=== PATIENT | male | born 1965 | race Two or more races ===

== ENCOUNTER 2021-05-12 19:17 | Inpatient (IN) | payer OTHER ==
[2021-05-12 20:23] VITALS: BMI 23.3
[2021-05-12] MEDS ORDERED: MAGNESIUM CITRATE 300 ML BOTTLE PO PRN (20:56)
[2021-05-12] MEDS ORDERED: MAGNESIUM HYDROX 2400MG/30ML ORAL SUSPENSION 30 ML CUP PO PRN (20:56)
[2021-05-12] MEDS ORDERED: ONDANSETRON *ODT* 4 MG TABLET SL PRN (20:56)
[2021-05-12] MEDS ORDERED: METHOCARBAMOL 500 MG TABLET PO PRN (20:56)
[2021-05-12] MEDS ORDERED: MAG HYDROX/AL HYDROX/SIMETH 30 ML UNIT-DOSE CUP PO PRN (20:56)
[2021-05-12] MEDS ORDERED: IBUPROFEN 400 MG TABLET (FP) PO PRN (20:56)
[2021-05-12] MEDS ORDERED: MENTHOL/PHENOL 1 EACH UD MM PRN (20:56)
[2021-05-12] MEDS ORDERED: NICOTINE POLACRILEX 2 MG GUM BUC PRN (20:56)
[2021-05-12] MEDS ORDERED: ACETAMINOPHEN 325 MG TABLET (FP) PO PRN ×2 (20:56)
[2021-05-12] MEDS ORDERED: BISMUTH SUBSALICYLATE 524 MG/30 ML PO PRN (20:56)
[2021-05-12] MEDS ORDERED: LORazepam 1 MG TABLET PO PRN (20:59)
[2021-05-12] MEDS ORDERED: LORazepam 2 MG TABLET ONE (22:57)
[2021-05-12] MEDS: THIAMINE HCL 100 MG TABLET (FP) PO SCH (23:00)
[2021-05-12] MEDS: LORazepam 2 MG TABLET PO SCH (23:00)
[2021-05-12] MEDS: MELATONIN 5 MG TABLETS PO SCH (23:00)
[2021-05-13] MEDS ORDERED: LORazepam 2 MG TABLET ONE (05:50)
[2021-05-13] MEDS: LORazepam 2 MG TABLET PO SCH ×2 (06:10→10:09)
[2021-05-13] MEDS ORDERED: PRENATAL VITAMINS W/ FOLIC ACID TABLET (FP) PO SCH (10:00)
[2021-05-13] MEDS ORDERED: NICOTINE 14 MG/24 HOURS TOPICAL PATCH TD SCH (10:00)
[2021-05-13 10:51] LABS: HEMATOCRIT 44.9 % (35.4-49); HEMOGLOBIN 15.1 GM/dL (11.7-16.9); MCH 33.3 pg (25.7-33.7); MCHC 33.6 g/dl (32.0-35.9); MEAN PLT VOLUME 7.6 fl (7.5-11.1); PLATELET COUNT 168 10^3/uL (134-434); RBC 4.53 M/mm3 (4.00-5.60); RDW 12.5 % (11.9-15.9); WHITE BLOOD COUNT 5.6 K/mm3 (4.0-10.0)
[2021-05-13 11:00] LABS: CALCIUM 9.1 mg/dL (8.5-10.1)
[2021-05-13 11:01] LABS: ALBUMIN 3.6 g/dl (3.4-5.0)
[2021-05-13 11:03] LABS: CREATININE 0.8 mg/dL (0.55-1.3)
[2021-05-13 11:05] LABS: BILIRUBIN,TOTAL 0.4 mg/dL (0.2-1); TOT PROT 7.5 g/dl (6.4-8.2)
[2021-05-13] MEDS ORDERED: amLODIPine BESYLATE 10 MG TABLET (FP) PO SCH (14:30)
[2021-05-13] MEDS: LORazepam 0.5 MG TABLET PO SCH ×2 (17:51→22:24)
[2021-05-13] MEDS: THIAMINE HCL 100 MG TABLET (FP) PO SCH (22:24)
[2021-05-13] MEDS: MELATONIN 5 MG TABLETS PO SCH (22:25)
[2021-05-14] MEDS ORDERED: LORazepam 0.5 MG TABLET PO SCH (05:00)
[2021-05-14] MEDS ORDERED: LORazepam 1 MG TABLET PO SCH (05:00)
[2021-05-14 07:26] VITALS: TEMP 98.1
[2021-05-14 09:17] VITALS: PULSE 117
[2021-05-14 09:27] VITALS: BP 161/100
[2021-05-15] MEDS ORDERED: LORazepam 0.5 MG TABLET PO PRN
[2021-05-15] MEDS ORDERED: LORazepam 0.5 MG TABLET PO SCH ×2 (05:00)
[2021-05-16] MEDS ORDERED: LORazepam 0.5 MG TABLET PO ONE (05:00)
== END 2021-05-14 10:24 | disposition left against medical advice (07) | DRG 770 ==
LOC: YASAS 19:17 → Y6N 05-13 09:15
PROVIDERS: ADMIT Allergy & Immunology; ATTEND Allergy & Immunology
PROC: HZ2ZZZZ Detoxification Services for Substance Abuse Treatment (ICD-10-PCS; principal; 2021-05-13)
DX: F10.230 Alcohol dependence with withdrawal, uncomplicated (principal); F14.20 Cocaine dependence, uncomplicated; F12.20 Cannabis dependence, uncomplicated; F17.210 Nicotine dependence, cigarettes, uncomplicated; F32.9 Major depressive disorder, single episode, unspecified; F41.9 Anxiety disorder, unspecified; Z21 Asymptomatic human immunodeficiency virus [HIV] infection status; I10 Essential (primary) hypertension; J45.20 Mild intermittent asthma, uncomplicated; K40.90 Unilateral inguinal hernia, without obstruction or gangrene, not specified as recurrent
CPT/HCPCS: 36415; 80053; 82140; 85027; 86780; 93005; 93010; C9803; U0003; U0005